=== PATIENT | female | born 1945 | race Caucasian/White ===

== ENCOUNTER 2021-05-06 09:35 | Outpatient (REF) | payer MEDICARE, SELFPAY ==
[2021-05-06 10:26] LABS: MANUAL DIFF FLAG NO
[2021-05-06 10:43] LABS: Basophils Absolute Auto 0.1 X10*3/uL (0.0-0.2); Basophils Percent Auto 1.4 % (0-2); Eosinophils Absolute Auto 0.2 X10*3/uL (0.0-0.4); Eosinophils Percent Auto 3.1 % (0-4); Hematocrit 42.7 % (37-47); Imm Gran Abs Auto 0.02 X10*3/uL (0.00-0.03); Imm Gran Pct Auto 0.3 % (0.0-0.4); Lymphocytes Absolute Auto 2.8 X10*3/uL (1.2-4.9); Lymphocytes Percent Auto 43.2 % (20-40); Mean Corpuscular HGB Conc 32.8 g/dl (31.0-35.0); Mean Corpuscular Hemoglobin 30.4 pg (27.0-33.0); Mean Corpuscular Volume 92.6 fL (80-98); Mean Platelet Volume 10.5 fL (9.4-12.3); Monocytes Absolute Auto 0.5 X10*3/uL (0.1-1.2); Monocytes Percent Auto 7.8 % (2-11); Neutrophils Absolute Auto 2.9 X10*3/uL (2.0-8.3); Neutrophils Percent Auto 44.2 % (45-73); Platelet Count 297 X10*3/uL (160-400); Red Blood Count 4.61 X10*6/uL (4.20-5.50); Red Cell Distribution Width 13.9 % (11.0-16.0); White Blood Count 6.5 X10*3/uL (4.8-10.8)
[2021-05-06 10:57] LABS: Alanine Aminotransferase 18 U/L (0-31); Anion Gap 13 (12-20); Blood Urea Nitrogen 11 mg/dL (9-16); Carbon Dioxide 28 mmol/L (22-29); Chloride 107 mmol/L (96-108); Estimated Glomerular Filt Rate > 60; Potassium 4.2 mmol/L (3.3-5.1); Sodium 144 mmol/L (135-145)
[2021-05-06 11:18] LABS: Free T4 (Free Thyroxine) 0.97 ng/dL (0.71-1.85)
== END 2021-05-06 09:36 | disposition home or self-care (01) ==
LOC: HO.LAB 09:35
PROVIDERS: PCP Family Medicine; Visit Provider Family Medicine
DX: R42 Dizziness and giddiness (principal); R63.4 Abnormal weight loss; R19.7 Diarrhea, unspecified
CPT/HCPCS: 36415; 80051; 82565; 84439; 84460; 84520; 85025

== ENCOUNTER 2022-02-27 15:26 | Outpatient (REF) | payer MEDICARE, SELFPAY ==
[2022-02-27 17:05] LABS: Anion Gap 13 (12-20); Blood Urea Nitrogen 12 mg/dL (9-16); Carbon Dioxide 30 mmol/L (22-29); Chloride 105 mmol/L (96-108); Estimated Glomerular Filt Rate > 60; Potassium 4.3 mmol/L (3.3-5.1); Sodium 144 mmol/L (135-145)
== END 2022-02-27 15:27 | disposition home or self-care (01) ==
LOC: HO.LAB 15:26
PROVIDERS: PCP Family Medicine; Visit Provider Family Medicine
DX: I10 Essential (primary) hypertension (principal)
CPT/HCPCS: 36415; 80051; 82565; 84520

== ENCOUNTER 2022-07-17 07:30 | Outpatient (REF) | payer MEDICARE, SELFPAY ==
--- NOTE | ~2022-07-17 | MM_ITS ---
EXAMINATION: MM SCREENING DIGITAL BREAST TOMOSYNTHESIS, BILATERAL CLINICAL INFORMATION: Screening. Asymptomatic. COMPARISON: Mammography: September 10, 2019 and studies dating back to July 11, 2015 TECHNIQUE: Digital breast tomosynthesis is performed in both the craniocaudal and mediolateral oblique views along with computer-aided detection (CAD). Synthesized 2D images are generated from the tomosynthesis. FINDINGS: There are scattered areas of fibroglandular density (ACR BI-RADS breast composition Category b). There are no new significant masses, abnormal calcifications, or other abnormalities. MM/MM tomosynthesis screening BI IMPRESSION: No significant changes from prior exam. ASSESSMENT: BI-RADS 1: Negative RECOMMENDATION: Routine annual mammography screening. This patient's information was entered into a reminder system with a target due date for their next mammogram.
== END 2022-07-17 07:31 | disposition home or self-care (01) ==
LOC: HO.MAMMO 07:30
PROVIDERS: Visit Provider Family Medicine
DX: Z12.31 Encounter for screening mammogram for malignant neoplasm of breast (principal)
CPT/HCPCS: 77063; 77067

== ENCOUNTER 2022-08-20 13:41 | Outpatient (REF) | payer MEDICARE, SELFPAY ==
[2022-08-20 14:16] LABS: COVID-19 Test Negative (Negative); IDNOW Serial# BCCEAD1C
== END 2022-08-20 13:42 | disposition home or self-care (01) ==
LOC: HO.LAB 13:41
PROVIDERS: Visit Provider Internal Medicine
DX: Z20.822 Contact with and (suspected) exposure to COVID-19 (principal)
CPT/HCPCS: 87635; C9803

== ENCOUNTER 2022-11-02 12:01 | Outpatient (REF) | payer MEDICARE, SELFPAY ==
[2022-11-02 12:45] LABS: COVID-19 Test Negative (Negative); IDNOW Serial# 16C4AD1C
== END 2022-11-02 12:02 | disposition home or self-care (01) ==
LOC: HO.LAB 12:01
PROVIDERS: Visit Provider Internal Medicine
DX: Z20.822 Contact with and (suspected) exposure to COVID-19 (principal)
CPT/HCPCS: 87635; C9803

== ENCOUNTER 2022-12-27 13:39 | Outpatient (REF) | payer MEDICARE, SELFPAY ==
--- NOTE | ~2022-12-27 | XR_ITS ---
EXAMINATION: XR LUMBOSACRAL SPINE CLINICAL INFORMATION: Left-sided sciatica. COMPARISON: 02/27/2017 lumbar spine radiographs. TECHNIQUE: Three views of the lumbosacral spine. FINDINGS: There is normal lumbar lordosis and spinal alignment. Generalized osteopenia is seen. Mild to moderate multilevel degenerative disc disease is seen most pronounced at L5-S1. There is no acute fracture. Moderate to severe atherosclerosis is seen in the abdominal aorta and iliac vessels. XR/XR lumbar spine 2-3V IMPRESSION: 1. Mild to moderate multilevel degenerative disc disease most pronounced at L5-S1. No acute abnormality. No significant interval change. 2. Moderate to severe atherosclerosis.
[2022-12-27 15:10] LABS: Anion Gap 13 (12-20); Blood Urea Nitrogen 12 mg/dL (9-16); Carbon Dioxide 32 mmol/L (22-29); Chloride 104 mmol/L (96-108); Estimated Glomerular Filt Rate > 60; Potassium 4.1 mmol/L (3.3-5.1); Sodium 145 mmol/L (135-145)
== END 2022-12-27 13:40 | disposition home or self-care (01) ==
LOC: HO.XRAY 13:39
PROVIDERS: PCP Family Medicine; Visit Provider Family Medicine
DX: I10 Essential (primary) hypertension (principal); M54.32 Sciatica, left side
CPT/HCPCS: 36415; 72100; 80051; 82565; 84520

== ENCOUNTER 2023-01-03 10:44 | Emergency (ER) | payer MEDICARE, SELFPAY ==
--- NOTE | ~2023-01-03 | XR_ITS ---
EXAMINATION: XR HIP, LEFT CLINICAL INFORMATION: Left hip, groin pain COMPARISON: None available. TECHNIQUE: Two views of the left hip. AP view of pelvis. FINDINGS: Pelvic bones have normal alignment. The sacrum and sacroiliac joints are unremarkable. The articular cartilage space of each hip is maintained. No arthritic deformity. No fracture, subluxation or focal soft tissue swelling. XR/XR hip LT w PEL1V IMPRESSION: Normal pelvis and left hip.
[2023-01-03 10:53] VITALS: BP 162/98; PULSE 96; O2SAT 96
--- NOTE | 2023-01-03 10:55 | ED_ITS ---
HPI - Back Pain/Injury General Chief Complaint: Extremity Problem Stated Complaint: LLE PAIN/WEAKNESS,SEEN RECENTLY FOR SAME PER EMS Time Seen by Provider: 01/03/23 10:48 Source: patient, EMS, RN notes reviewed and old records reviewed Mode of arrival: EMS Limitations: no limitations History of Present Illness HPI Narrative: 77-year-old female with a past medical history of hypertension, sciatica, presenting to the ED complaining of left hip pain radiating to left foot with associated paresthesias x 1 week. Admits was seen at PCPs last week prescribed prednisone without relief. Had outpatient lumbar x-ray showing multilevel degenerative disc disease and atherosclerosis. Admits did trip walking up the stairs last Saturday, prior to seeing PCP, unsure if landed on hip or caused symptoms. Denies head trauma or LOC. Denies weakness, numbness, urinary incontinence/retention, fever, abdominal pain MD elicited complaint: back pain Related Data Allergies Allergy/AdvReac Type Severity Reaction Status Date / Time No Known Allergies Allergy Unverified 05/26/20 15:52 [No Known Allergies*] Review of Systems Review of Systems: Constitutional: No Fever, No Chills ENT/Mouth: No Ear Pain, No Nasal Congestion, No sore throat, No Rhinorrhea, No Swallowing Difficulty Cardiovascular: No Chest Pain, No SOB Respiratory: No Cough, No Sputum, No Wheezing Gastrointestinal: No Nausea, No Vomiting, No Diarrhea, No Constipation, No Ab dominal pain Genitourinary: No Dysuria, No Urinary Frequency, No Hematuria, No Urinary Incontinence/retention, No Urgency, No Flank Pain Musculoskeletal: + joint pain, No Myalgias, No Joint Swelling Skin: No Skin Lesions, No rash Neuro: No Weakness, No Numbness, + Paresthesias Yes all other systems are reviewed and are negative Constitutional: Constitutional: Reports as per HPI Neurologic: Denies Sensory deficit (Neuro) [facility] Past Medical History Attestation statement: The following information was validated with the patient. Social History Social History Advance Directives: Yes Advance Directives on File: Yes Advance Directives Date on File: 01/03/23 Physical Exam Vital Signs: Vital Signs: Last Vital Signs Temp 97.8 F 01/03/23 11:06 Pulse 83 01/03/23 14:18 Resp 18 01/03/23 11:06 BP 166/63 H 01/03/23 14:18 Pulse Ox 95 01/03/23 14:18 O2 Del Method Room Air 01/03/23 11:06 BMI result Body Mass Index 32.1 Const: General: cooperative, healthy appearing and no acute distress Orientation/consciousness: patient oriented x3 Limitations: no limitations HEENT: Head: Yes normal to inspection and Yes atraumatic Ears: hearing grossly normal bilaterally General nose exam: Normal external nose present Face and sinus: Yes normal facial exam Eyes: General: appearance normal, both eyes and all related structures EOM: EOMs intact bilaterally Neck: Neck: Yes normal visual inspection and Yes no meningeal signs Resp: Effort & Inspection: normal respiratory effort and no respiratory di stress Cardio: Rate: regular rate Heart sounds: S1 normal heart sound present and S2 normal heart sound present Peripheral pulses: Peripheral pulses 2+ throughout GI: Inspection: Yes normal to inspection Palpation (GI): Soft to palpation, nontender, no guarding and not rigid : General: Yes no CVA tenderness Back/Spine/Pelvis: Other: No midline cervical/thoracic/lumbar spinous tenderness/step-off or deformity Back: no CVA tenderness Skin: Rashes: no rashes Wounds: no wounds Neuro: Other: Strength intact throughout. No saddle anesthesia. Sensation intact to light touch. Neurovascular intact distally General: patient oriented x3, tone normal, moves all extremities, no meningeal signs and no focal motor deficits Cognition (Neuro): normal cognition Motor exam (neuro): 5/5 motor strength present throughout Sensory Exam: No Sensory deficit (Neuro) Extrem: Other: + left lateral hip/groin tenderness to palpation, and mild left buttock tenderness. No erythema/warmth or crepitus. Hip ROM intact without pain. Neurovascularly intact distally. General: Yes normal to inspection Course Course Course Narrative: -patient reporting continued pain after Flexeril. Refuse lidocaine patch. Will give 5 mg of oxycodone >> shortly after Oxycodone patient was ambulating in the ED with steady gait with walker to the bathroom. Reports symptomatic improvement. 1305--XR hip LT w PEL1V IMPRESSION: Normal pelvis and left hip. > patient feels uncomfortable being home alone, will obtain PT/case management consult -physical therapy evaluated patient and recommended short-term rehab > patient accepted to [facility] will be transferred via BLS at 16:00 Results discussed with patient including worrisome signs and symptoms and strict return precautions, and when to return to the emergency department. They verbalized understanding and feel safe for discharge at this time. Medications Administered Discontinued Medications Generic Name Dose Route Start Last Admin Trade Name Rosy PRN Reason Stop Dose Admin Cyclobenzaprine HCl 10 mg 01/03/23 11:10 01/03/23 11:20 Cyclobenzaprine Hcl 10 Mg Tablet PO 01/03/23 11:11 10 mg ONCE ONE Administration Ketorolac Tromethamine 30 mg 01/03/23 14:13 01/03/23 14:18 Ketorolac Tromethamine 15 Mg/Ml Vial IM 01/03/23 14:14 30 mg ONCE ONE Administration Lidocaine 1 patch 01/03/23 11:10 01/03/23 12:11 Lidocaine 4 % Patch Adh..Patch TRANSDERMA 01/03/23 11:11 Not Given ONCE ONE Protocol Oxycodone HCl 5 mg 01/03/23 11:55 01/03/23 12:07 Oxycodone Hcl Immed Release 5 Mg Tablet PO 01/03/23 11:56 5 mg ONCE ONE Administration Medical Decision Making Medical Decision Making [facility] Narrative: 77-year-old female with a past medical history of hypertension, sciatica, presen ting to the ED complaining of left hip pain radiating to left foot with associated paresthesias x 1 week. On exam vital signs stable, NAD, nontoxic appearing, no midline spinous tenderness or or red flag symptoms. + left hip/groin and buttock tenderness reproducible on exam. Neurovascular intact distally. No saddle anesthesia. Unable to ambulate secondary to pain. Concern for subacute hip fracture vs strain vs sciatica. Lower suspicion for fracture, cauda equina, cord compression, hernia, intra-abdominal process Plan: Left hip/pelvis x-rays, p.o. Flexeril/Lidoderm patch Please refer to course for remaining clinical decision making, interpretation of labs/imaging results, and discussions with consultants and/or family members. Differential Diagnosis Differential Diagnoses: The differential diagnosis associated with the presentation includes As above Admission/Observation Consideration of admission/observation: Escalation of care including admission/observation considered Lab Data [facility] Lab Attestation statement: I reviewed the patient's lab results. Labs: Lab Results 01/03/23 Range/Units 14:23 COVID-19 (MASOOD) Negative (Negative) COVID-19 Clin Com See Note Radiology Impression Discussion of test interpretation with radiology: I have reviewed the radiologist's reading. External Record Review External record reviewed: Inpatient record, Office record, Outpatient record, Prior outpatient labs, Prior outpatient radiology, Primary care record and Outside ED record Discharge Plan Discharge Clinical Impression: Sciatica, Acute pain of left hip Patient Disposition: Still a Patient
[2023-01-03 11:06] VITALS: BP 166/63; PULSE 83; RESP 18; TEMP 36.6; O2SAT 95; BMI 32.1
[2023-01-03] MEDS: Cyclobenzaprine HCl 10 MG TABLET PO (11:20)
[2023-01-03] MEDS: oxyCODONE HCl Immed Release 5 MG TABLET PO (12:07)
--- NOTE | 2023-01-03 12:20 | PC.NURSE ---
pt medicated with flexeril 10mg, pt refused lidocaine patch and stated I have the presciption ones at home, i took them off at 6am provider aware- oxycodone ordered call ignacio within reach- xrays taken pending results
--- NOTE | 2023-01-03 13:14 | PC.NURSE ---
pt observed oob with RW independently to BR, was able to get self back into bed
--- NOTE | 2023-01-03 13:15 | PC.NURSE ---
nurse called into room pt sts that her pain is now back in full force PRN pain medication given had been given
[2023-01-03 14:18] VITALS: BP 166/63; PULSE 83; O2SAT 95
[2023-01-03] MEDS: Ketorolac Tromethamine 15 MG/ML VIAL 30 MG IM (14:18)
[2023-01-03 14:43] LABS: COVID-19 Test Negative (Negative); IDNOW Serial# BCCEAD1C
--- NOTE | 2023-01-03 15:03 | PC.NURSE ---
pt oob to BR with rolling walker able to get in and out of bed and use toilet independently
--- NOTE | 2023-01-03 15:06 | MHC.CM.ED ---
Addendum entered by Lucretia Gar 01/03/23 15:43: [facility] offer a bed. Patient can leave at 4pm. Patient, Cathleen RN and Marla POWELL aware. David MAHONEY booked. Original Note: Received case management consult from Marla POWELL. Patient came to the ER due to weakness. Physical therapy eval completed. Short term rehab is recommended. Patient informed PT that [facility]. Referral made via [facility]. Attempted to meet with patient in regards to d/c planning. Patient currently in the bathroom. No family present. Will attempt to meet again. Continue to monitor for d/c needs.
--- NOTE | 2023-01-03 15:16 | PC.NURSE ---
rec call from [place] case management, pt will be going to [facility] @ 1600 transportation arrangements made by case management
--- NOTE | 2023-01-03 15:51 | PHA.MEDREC ---
Pharmacy Consult ? Medication Reconciliation Pharmacy has completed the medication reconciliation. Patient had list on her phone.
[2023-01-03 16:17] VITALS: BP 158/57; PULSE 89; O2SAT 99
== END 2023-01-03 16:54 | disposition skilled nursing facility (03) ==
PROVIDERS: Physician Assistant; Emergency Provider Emergency Medicine; PCP Family Medicine
DX: M54.42 Lumbago with sciatica, left side (principal); G89.11 Acute pain due to trauma; M25.552 Pain in left hip; Z20.822 Contact with and (suspected) exposure to COVID-19
CPT/HCPCS: 73502; 87635; 96372; 97162; 99284; 99285; J1885

== ENCOUNTER 2023-01-26 13:30 | Outpatient (REF) | payer MEDICARE, SELFPAY ==
--- NOTE | ~2023-01-26 | MR_ITS ---
EXAMINATION: MR LUMBAR SPINE WITHOUT CONTRAST CLINICAL INFORMATION: Persistent left-sided sciatica. Evaluate for compression fracture of L4-L5 nerve root. COMPARISON: Lumbar spine radiographs 12/27/2022. TECHNIQUE: MRI of the lumbar spine was obtained using routine sequences without contrast. FINDINGS: There is slight grade 1 anterolisthesis of L3 on L4, L4 on L5, and L5 on S1 related to advanced facet degenerative changes at these levels. Vertebral heights are preserved. No acute bone marrow signal changes. The slight loss of intervertebral disc height and T2 signal intensity at multiple levels related to disc degeneration. The tip of the conus medullaris is located at L1-L2. No mass effect on the conus. Visualized distal cord signal intensity is normal. At L1-L2 there is a bulging disc. Bilateral facet degenerative change. No canal stenosis. No mass effect on the traversing or foraminal nerve roots. At L2-L3 there is a slightly bulging disc. Bilateral facet degenerative change. No canal stenosis. No mass effect on the traversing or foraminal nerve roots. At L3-L4 there is a pseudodisc bulge. Advanced bilateral facet degenerative change. Mild canal stenosis. Subarticular zone narrowing causes abutment of the left traversing L4 nerve roots. No foraminal nerve root compression. At L4-L5 there is a pseudodisc bulge. Advanced bilateral facet degenerative change. Mild canal stenosis. There is a small synovial cyst arising from the left L4-L5 articular facet joint which in conjunction with a bulging disc causes compression of the left traversing L5 nerve roots. No foraminal nerve root compression. At L5-S1 there is an asymmetrically bulging disc to the left. Bilateral facet degenerative change. No canal stenosis. No substantial mass effect on the traversing or foraminal nerve roots. Limited visualization of the retroperitoneal anatomy reveals no abnormal finding. Psoas and paraspinal muscle groups are symmetric. MR/MR lumbar spine wo con IMPRESSION: There is multilevel degenerative spondylosis of the lumbar spine with slight grade 1 anterolisthesis of L3 on L4, L4 on L5, and L5 on S1 related to advanced facet degenerative changes at these levels. There is mild canal stenosis at L3-L4 and L4-L5. A small synovial cyst arising from the left L4-L5 articular facet joint which in conjunction with a bulging disc causes asymmetric compression of the left traversing L5 nerve roots. Otherwise no substantial mass effect on the traversing or foraminal nerve roots elsewhere within the lumbar spine.
== END 2023-01-26 13:31 | disposition home or self-care (01) ==
LOC: HO.MRI 13:30
PROVIDERS: PCP Family Medicine; Visit Provider Family Medicine
DX: M54.32 Sciatica, left side (principal)
CPT/HCPCS: 72148

== ENCOUNTER 2023-04-01 12:27 | Outpatient (AMB) | payer MEDICARE, SELFPAY ==
[2023-04-01 12:56] VITALS: BP 184/82; PULSE 101; BMI 32.9
--- NOTE | 2023-04-01 12:56 | A.OFFVIS_ITS ---
Intake Vital Signs 04/01/23 12:56 Height 5 ft 3 in Weight 186 lb BMI 32.9 BP 184/82 H Blood Pressure Location Rt brachial Position Sitting Pulse 101 H Intake Visit Reasons: Lesion above right wrist Intake Note: Patient referred for lesion on Rt forearm. Has been present for at least a year. Recently became irritated, bleeding. Not healing. Patient keeps it covered with bandaid. Also concerned with lesion on Lt neck/ shoulder. Gets irritated with cothing.Reports no hx of skin ca. [facility] Psych[facility]rist Required: No Accompanied by: Self / Same As Patient Allergies No Known Allergies [No Known Allergies*] Allergy (Unverified 04/01/23 12:58) Medication List - Last Reconciled 04/01/23 by Nnamdi Telles MD aspirin 81 mg PO DAILY losartan 50 mg PO DAILY metoprolol succinate ER 50 mg PO BEDTIME omeprazole 20 mg PO DAILY@1700 vit C,N-Re-pfjqw-lutein-zeaxan 250-90-40-1 mg (PreserVision AREDS-2) 1 tab PO BID vitamin B complex 1 tab PO DAILY HPI HPI Comments History of Present Illness Details Patient presents for evaluation of a right distal forearm skin lesion and a left neck lesion. There each increasing in size, become more symptomatic. She would like to have them removed. Chart was reviewed and patient evaluated [facility] Medical History (Updated 04/01/23 @ 13:00 by ULISES Marin) HTN (hypertension) Social History (Updated 04/01/23 @ 13:01 by ULISES Marin) Alcohol intake: current Alcohol intake frequency: holidays/special occasions only Alcohol type: wine Patient Tobacco Use Status: Former Tobacco user Quit Date: 15 yrs ago Advance Directives Date on File: 01/03/23 Physical Exam Vital Signs: Last Vital Signs Pulse 101 H 04/01/23 12:56 BP 184/82 H 04/01/23 12:56 BMI result Body Mass Index 32.9 Neck Other: Approximately 3 x 2 cm seborrheic keratotic exophytic lesion involving left neck. Multiple smaller flat left neck similar lesions. No cervical periclavicular adenopathy. Extrem Other: Approximately 1/2 x 1/2 cm distal dorsal forearm exophytic lesion Office Procedures Excision Details: Risks, benefits, alternatives of excision of right forearm and left neck lesions were reviewed with the patient and included but not limited to bleeding, infection, recurrence, numbness, pain, scarring the patient was to proceed. Each area 1.% lidocaine and Betadine prep and 10 gentle excision of a right form lesion approximately 0.5 cm in diameter and a left neck lesion/seborrheic keratotic lesion measuring approximately 2 x 3 cm for uneventfully performed. Specimens separately sent to pathology. Each wound was secured hemostasis using silver nitrate followed by bacitracin and sterile dressing. Patient tolerated procedures well. 47951-Hxksedcx scalp/neck/hands/feet/genitalia 2.1cm-3cm 97034-stapr/arms/legs < 0.5cm Procedure code (CPT) selection complete Office Meds lidocaine-epinephrine 1 %-1:100,000 Performing Provider: Nnamdi Telles MD Documented (not given) by: Nnamdi Telles MD on 04/01/23 13:15 Dose Route Admin Location Lot Number Expiration Date NDC Toll Operator 30 mL Infiltration Assessment & Plan Assessment & Plan (1) Skin lesion: Code(s): L98.9 - Disorder of the skin and subcutaneous tissue, unspecified (2) Skin lesion of neck: Code(s): L98.9 - Disorder of the skin and subcutaneous tissue, unspecified Orders: Orders AMB Excision Today L98.9 - Disorder of the skin and subcutaneous tissue, unspecified Medications: New lidocaine-epinephrine 1 %-1:100,000 30 mL Infiltration ONCE 30 mL 0RF L98.9 - Disorder of the skin and subcutaneous tissue, unspecified Coding Level of Care Code New Pt Level 4 (56160) Diagnoses Skin lesion L98.9 Skin lesion of neck L98.9 CPT Codes Trunk/Arms/Legs - CPT: 72695-fekgs/arms/legs < 0.5cm ([id number]) Scalp/Neck/Hands/Feet/Genetalia - CPT: 34580-Jrbnvysk scalp/neck/hands/feet/ge nitalia 2.1cm-3cm ([id number])
== END 2023-04-01 13:15 | disposition home or self-care (01) ==
PROVIDERS: PCP Family Medicine; Referring Provider Family Medicine; Visit Provider Surgery
DX: L82.1 Other seborrheic keratosis (principal)
CPT/HCPCS: 11400; 11423; 99204

== ENCOUNTER 2023-04-01 12:27 | Outpatient (REF) | payer MEDICARE, SELFPAY | END 2023-04-01 12:28 | disposition home or self-care (01) | LOC: HO.LNP 12:27 | PROVIDERS: PCP Family Medicine; Referring Provider Family Medicine; Visit Provider Surgery | DX: L82.0 Inflamed seborrheic keratosis (principal); L98.9 Disorder of the skin and subcutaneous tissue, unspecified | CPT/HCPCS: 11400; 11423; 88304; 99202 ==

== ENCOUNTER 2023-04-08 09:14 | Outpatient (AMB) | payer MEDICARE, SELFPAY ==
--- NOTE | 2023-04-08 09:24 | MHC.OFFVIS ---
Intake Vital Signs 04/08/23 09:26 BP 162/69 H Blood Pressure Location Rt brachial Position Sitting Pulse 91 Intake Visit Reasons: Follow up exc skin lesion above right wrist Intake Note: Patient here s/o exc on Lt neck/ upper chest and Rt forearm. Reports chest has been red and tender. Both sites healing well. Denies bleeding or oozing. Director Of Institutional Sales Required: No Accompanied by: Self / Same As Patient Allergies No Known Allergies [No Known Allergies*] Allergy (Unverified 04/08/23 09:26) HPI HPI Comments History of Present Illness Details Patient presents for follow-up. She has no wound issues or complaints. Pathologies are benign [facility] Medical History HTN (hypertension) Social History Alcohol intake: current Alcohol intake frequency: holidays/special occasions only Alcohol type: wine Patient Tobacco Use Status: Former Tobacco user Quit Date: 15 yrs ago Advance Directives Date on File: 01/03/23 Physical Exam Vital Signs: Last Vital Signs Pulse 91 04/08/23 09:26 BP 162/69 H 04/08/23 09:26 Neck Other: Neck wound eschar clean dry and intact Extrem Other: Right forearm wound eschar, clean dry and intact Assessment & Plan Assessment & Plan (1) Skin lesion: Code(s): L98.9 - Disorder of the skin and subcutaneous tissue, unspecified (2) Skin lesion of neck: Code(s): L98.9 - Disorder of the skin and subcutaneous tissue, unspecified Plan Patient has been given local wound instructions, and will follow-up p.r.n. Coding Level of Care Code Global (78814) Diagnoses Skin lesion L98.9 Skin lesion of neck L98.9
[2023-04-08 09:26] VITALS: BP 162/69; PULSE 91
== END 2023-04-08 09:30 | disposition home or self-care (01) ==
PROVIDERS: PCP Family Medicine; Visit Provider Surgery
DX: L98.9 Disorder of the skin and subcutaneous tissue, unspecified (principal)
CPT/HCPCS: 99024

== ENCOUNTER → 2023-04-08 09:14 | Outpatient (BNVA) | payer MEDICARE, SELFPAY | PROVIDERS: PCP Family Medicine; Visit Provider Surgery ==

== ENCOUNTER 2023-05-30 12:05 | Outpatient (REF) | payer MEDICARE, SELFPAY ==
[2023-05-30 13:07] LABS: Anion Gap 13 (12-20); Blood Urea Nitrogen 13 mg/dL (9-16); Carbon Dioxide 25 mmol/L (22-29); Chloride 108 mmol/L (96-108); Estimated Glomerular Filt Rate > 60; Potassium 3.6 mmol/L (3.3-5.1); Sodium 142 mmol/L (135-145)
== END 2023-05-30 12:06 | disposition home or self-care (01) ==
LOC: HO.LAB 12:05
PROVIDERS: PCP Family Medicine; Visit Provider Family Medicine
DX: I10 Essential (primary) hypertension (principal)
CPT/HCPCS: 36415; 80051; 82565; 84520

== ENCOUNTER → 2023-07-24 07:30 | Outpatient (BNV) | payer MEDICARE, SELFPAY | PROVIDERS: PCP Family Medicine; Visit Provider Radiology Diagnostic Radiology | DX: Z12.31 Encounter for screening mammogram for malignant neoplasm of breast (principal) | CPT/HCPCS: 77063; 77067 ==

== ENCOUNTER 2023-07-24 07:32 | Outpatient (REF) | payer MEDICARE, SELFPAY ==
--- NOTE | ~2023-07-24 | MM_ITS ---
EXAMINATION: MM SCREENING DIGITAL BREAST TOMOSYNTHESIS, BILATERAL CLINICAL INFORMATION: Screening. Asymptomatic. COMPARISON: Mammography: This study is compared with prior exams dating back to 2017. TECHNIQUE: Digital breast tomosynthesis is performed in both the craniocaudal and mediolateral oblique views along with computer-aided detection (CAD). Synthesized 2D images are generated from the tomosynthesis. FINDINGS: The breasts are heterogeneously dense, which may obscure small masses (ACR BI-RADS breast composition Category c). There are no significant masses, abnormal calcifications, or other abnormalities. There are a few, bilateral, unchanged calcifications in each breast. MM/MM tomosynthesis screening BI IMPRESSION: No mammographic evidence of malignancy. ASSESSMENT: BI-RADS BI-RADS 2 - Benign Findings RECOMMENDATION: Routine annual mammography screening. 1 year F/U This examination should not preclude the clinical evaluation of a suspicious palpable abnormality. This patient's information was entered into a reminder system with a target due date for their next mammogram.
== END 2023-07-24 07:33 | disposition home or self-care (01) ==
LOC: HO.MAMMO 07:32
PROVIDERS: PCP Family Medicine; Visit Provider Family Medicine
DX: Z12.31 Encounter for screening mammogram for malignant neoplasm of breast (principal)
CPT/HCPCS: 77063; 77067

== ENCOUNTER 2023-11-18 14:16 | Outpatient (REF) | payer MEDICARE, SELFPAY ==
[2023-11-18 15:10] LABS: Anion Gap 11 (12-20); Blood Urea Nitrogen 13 mg/dL (9-16); Carbon Dioxide 31 mmol/L (22-29); Chloride 109 mmol/L (96-108); Estimated Glomerular Filt Rate > 60; Potassium 3.5 mmol/L (3.3-5.1); Sodium 147 mmol/L (135-145)
== END 2023-11-18 14:17 | disposition home or self-care (01) ==
LOC: HO.LAB 14:16
PROVIDERS: PCP Family Medicine; Visit Provider Family Medicine
DX: I10 Essential (primary) hypertension (principal)
CPT/HCPCS: 36415; 80051; 82565; 84520

== ENCOUNTER 2024-05-25 13:47 | Outpatient (REF) | payer MEDICARE, SELFPAY ==
[2024-05-25 15:15] LABS: Anion Gap 16 (12-20); Blood Urea Nitrogen 12 mg/dL (9-16); Carbon Dioxide 22 mmol/L (22-29); Chloride 109 mmol/L (96-108); Estimated Glomerular Filt Rate > 60; Potassium 4.1 mmol/L (3.3-5.1); Sodium 143 mmol/L (135-145)
== END 2024-05-25 13:48 | disposition home or self-care (01) ==
LOC: HO.LAB 13:47
PROVIDERS: PCP Family Medicine; Visit Provider Family Medicine
DX: I10 Essential (primary) hypertension (principal)
CPT/HCPCS: 36415; 80051; 82565; 84520

== ENCOUNTER 2025-07-21 12:48 | Outpatient (AMB) | payer MEDICARE, SELFPAY ==
--- NOTE | 2025-07-21 12:50 | A.OFFPC_ITS ---
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 Required: No Accompanied by: Self / Same As Patient Allergies No Known Allergies (No Known Allergies*) Allergy (Verified 07/21/25 12:51) Tobacco use date assessed: 07/21/25 Fall risk assessment: No Falls in past year Last assessed Fall Risk: 07/21/25 Dental Screening Dental Screen Date: 07/21/25 Did you have a dental visit in the last 12 months?: Yes Did you have a dental problem in the last 6 months where you did not have access to dental care?: No Was dental information given to patient?: Patient has dentist HPI HPI Comments History of Present Illness Details 79-year-old female with history of osteo arthritis, depression, IBS, GERD, gait ataxia, hypertension presenting to the office today for management of chronic conditions and to establish care. She is a former patient of Dr. Sena, last seen 02/2025 Hypertension-compliant with Toprol 50 mg nightly, losartan 50 mg daily. Blood pressure in the office 140/68. Brings record of prior blood pressures which are within normal limits GERD-ppi Concerns: Lesion right hand-revolving, previously saw general surgery for excision and biopsy Chest pain-reports retrosternal chest pressure ongoing intermittently since Saturday. Saturday was most severe radiating down the left arm. She took 325 mg of aspirin with resolution of symptoms. She does currently have these symptoms but reports they are not as severe. There is associated dyspnea on exertion and is reporting constant fatigue. She has no known history of coronary artery disease though does take a baby aspirin on a daily basis as well as metoprolol. Currently no dyspnea, lightheadedness, palpitations ROS: see hpi EXAM: Constitutional - Awake and Alert, No apparent distress Eyes - PERRL Cardiovascular - S1S2, RRR, No edema, IV/ systolic murmur greatest in aortic and pulmonic maixne Respiratory - Normal lung expansion, Normal respiratory effort, No respiratory distress, CTA bilaterally Extremities - no calf tenderness bilaterally, no swelling Skin - Warm/Dry Neurological - Alert & oriented x3 Psychological - Appropriate affect [facility] Medical History HTN (hypertension) Social History Housing: House Alcohol intake: current Alcohol intake frequency: holidays/special occasions only Alcohol type: wine Patient Tobacco Use Status: Former Tobacco user Years Smoked: on and off for 15 years e-Cigarette/Vaping Use: Never Used Advance Directives Date on File: 01/03/23 service: No Current occupational status: retired Questionnaire AUDIT C Alcohol Use Questionnaire (AUDIT-C) 1. How often do you have a drink containing alcohol?: 2-3 times a week 2. How many drinks containing alcohol do you have on a typical day when you are drinking?: 1 or 2 3. How often do you have six or more drinks on one occasion?: Never Total Score: 3 Physical exam (Primary Care) Vital Signs: Last Vital Signs Temp 98 F 07/21/25 13:13 Pulse 117 H 07/21/25 13:13 Resp 20 07/21/25 13:13 BP 140/66 H 07/21/25 13:13 Pulse Ox 97 07/21/25 13:13 Oxygen Delivery Method Room Air 07/21/25 13:13 BMI result Body Mass Index 35.5 Tobacco/Smoking Status: Tobacco use Status Tobacco use date assessed 07/21/25 07/21/25 12:51 Patient Tobacco Use Status Former Tobacco user 07/21/25 12:51 e-Cigarette/Vaping Use Never Used 07/21/25 13:21 Office Procedures EKG Details: NSR, rate 97, no significant ST/T-wave abnormality but slight Q-waves noted in lead I and aVL. Patient is symptomatic [id number], Complete Coding Level of Care Code New Pt Level 5 (55699) Complex EM visit Add On G2211 Diagnoses Chest pain R07.9 Aortic stenosis I35.0 Dyspnea on exertion R06.09 CPT Codes EKG - CPT: 25797-[id number], Complete ([id number]) Assessment & Plan Assessment & Plan (1) Chest pain: Code(s): R07.9 - Chest pain, unspecified Category: Medical Plan: EKG reviewed. Currently asymptomatic, slight Q-waves noted in leads 1 and aVL. EMS called for transfer to the ED. Transfer agreeable. No aspirin available in the office unfortunately (2) Aortic stenosis: Code(s): I35.0 - Nonrheumatic aortic (valve) stenosis Category: Medical Plan: Grade IV/ with coinciding symptoms. Stat echo ordered and stat referral to cardiology ordered (3) Dyspnea on exertion: Code(s): R06.09 - Other forms of dyspnea Category: Medical Plan: As above. Plan Presenting to the ED for further evaluation and management Orders: Orders AMB EKG-In Office Today R07.9 - Chest pain, unspecified CA echo transesophageal Today I35.0 - Nonrheumatic aortic (valve) stenosis, R06.09 - Other forms of dyspnea, R07.9 - Chest pain, unspecified Referrals Cardiology Referral I35.0 - Nonrheumatic aortic (valve) stenosis, R06.09 - Other forms of dyspnea, R07.9 - Chest pain, unspecified
[2025-07-21 13:13] VITALS: BP 140/66; PULSE 117; RESP 20; TEMP 36.6; O2SAT 97; BMI 35.5
== END 2025-07-21 14:41 | disposition home or self-care (01) ==
LOC: HO.HMCHD 12:49
PROVIDERS: PCP Physician Assistant; Visit Provider Physician Assistant
DX: R07.9 Chest pain, unspecified (principal); I35.0 Nonrheumatic aortic (valve) stenosis; R06.09 Other forms of dyspnea

== ENCOUNTER 2025-07-21 14:35 | Emergency (ER) | payer MEDICARE, SELFPAY ==
--- NOTE | 2025-07-21 | ECG_ITS ---
Test Reason : CP Blood Pressure : */* mmHG Vent. Rate : 92 BPM Atrial Rate : 92 BPM P-R Int : 156 ms QRS Dur : 86 ms QT Int : 344 ms P-R-T Axes : 37 -20 23 degrees QTcB Int : 425 ms Normal sinus rhythm Anterior infarct , age undetermined Abnormal ECG When compared with ECG of 09-Jun-2014 08:27, Anterior infarct is now Present Referred By: Generic ED Physician Electronically Signed By: YSABEL FRANKLIN MD
--- NOTE | ~2025-07-21 | XR_ITS ---
CLINICAL HISTORY: chest pain 1 view chest x-ray Comparison: None provided Findings: No consolidation or effusion. Heart size is normal. No acute fracture. IMPRESSION: 1. No acute findings. This document has been electronically signed by: Dolores Montes MD on 07/21/2025 17:44:53
[2025-07-21 14:45] VITALS: BP 132/56; BP 146/76; PULSE 86; PULSE 90; RESP 17; TEMP 36.8; O2SAT 96; O2SAT 98; BMI 36.4
--- NOTE | 2025-07-21 15:48 | ED_ITS ---
HPI - General Adult General Chief complaint: General Medical Stated complaint: CP XDAYS,EKG CHANGES FROM MD OFFICE Time Seen by Provider: 07/21/25 15:30 Source: patient, RN notes reviewed and old records reviewed Mode of arrival: ambulatory Limitations: no limitations History of Present Illness ED Provider: Cherry Piedra PA-C HPI narrative: Roxanne is an 79 y/o female with PMH sig for HTN and GERD who who was referred to the ED today after her primary care visit earlier this afternoon (? 1:15 PM) where an outpatient screening EKG showed an abnormality. She reports fatigue that began about one week ago and has been present for about a month, with worsening over the past week. She also describes intermittent chest pain that first occurred last while in bed at 2 AM?she awoke with a sensation ?like somebody was hitting my chest.? Subsequent episodes occurred Saturday while resting and again last night while seated in a recliner. The Saturday episode lasted ~2 hours; the most recent episode has persisted for ~3 hours since her PCP visit and is still present, though milder (?feels like somebody?s sitting on my chest, but not real bad?). Pain is located in the chest with radiation to the arm, constant during episodes, not worsened by exertion or movement, but sometimes worse when lying flat, and has not been associated with decreased oral intake. Aspirin placed sublingually produced partial relief; Tums provided no benefit. She denies prior myocardial infarction, heart disease, stroke, diabetes, dizziness, light-headedness, dyspnea on exertion, cough, sore throat, dysuria, or recent infections. Past history includes hypertension and remote tobacco use (quit ~10 years ago). No current tobacco use. Ashwini Blanchard PA-C reports she send patient here with concern of the chest pressure she reported in office today and the slight q waves seen in office EKG today. Related Data Home Medications ?Medication ?Instructions ?Recorded ?Confirmed aspirin 81 mg tablet,delayed 81 mg PO DAILY 01/03/23 0 01/03/23 release losartan 50 mg tablet 50 mg PO DAILY 01/03/2312/09 metoprolol succinate 50 mg 50 mg PO BEDTIME 01/03/23 0 01/03/23 tablet,extended release 24 hr omeprazole 20 mg capsule,delayed 20 mg PO DAILY@1700 0 01/03/23 01/03/23 release vit C 250 mg-vit E 90 mg-zinc 40 1 tab PO BID 01/03/23 01/03/23 mg-copper 1 [id number] capsule (PreserVision AREDS-2) vitamin B complex 1 tab PO DAILY 01/03/2312/09 ascorbate calcium (vitamin C) 500 1,000 mg PO DAILY mg tablet magnesium 250 mg tablet 250 mg PO DAILY 07/21/25 multivitamin 1 tab PO DAILY 07/21/25 Allergies Allergy/AdvReac Type Severity Reaction Status Date / Time No Known Allergies (No Known Allergy Verified 07/21/25 14:48 Allergies*) Review of Systems 2 Review of Systems: Yes all other systems are reviewed and are negative PMFSH Past Medical History Attestation statement: The following information was validated with the patient. Source: old records reviewed and nursing notes reviewed Medical History Aortic stenosis Chest pain HTN (hypertension) Social History Social History Housing: House Alcohol intake: current Alcohol intake frequency: 0-2 drinks per day Alcohol type: wine Patient Tobacco Use Status: Former Tobacco user Years Smoked: on and off for 15 years Smoked in Last 30 Days: No e-Cigarette/Vaping Use: Never Used Use of substances other than those prescribed or required for medical reasons: No Advance Directives: Yes Advance Directives on File: Yes Advance Directives Date on File: 01/03/23 Do you have a plan to hurt others: No Plan service: No Current occupational status: retired Physical Exam ED Exam Exam: General: Appears in no acute distress, appears well nourished body habitus is obese, appears stated age. No septic or ill-appearing. Vitals reviewed normal, PMH/Social and Surgical hx reviewed including allergies and current medications. - reviewed for prior visits here Head: Normocephalic, no obvious trauma or skin lesions noted. Eyes: EOMI, no scleral icterus ENMT: moist oral mucosa, uvula is midline no trismus Neck: trachea midline, no lymphadenopathy Cardiovascular: peripheral perfusion normal, Regular heart rate, regular rhythm, no M/R/G, distal pulses 2+ equal and symmetric (carotid, femoral, radial, DP/TP) Respiratory: no respiratory distress, lungs CTAB, chestwall nontender, no ecchymosis, no midline tenderness, step-offs or deformities of entire spine Abdomen: protuberant, nontender Extremities: warm and moving without difficulty Psych: Cooperative Neuro: Alert and oriented. Vital Signs: Vital Signs - 24 hr 07/21/25 14:45 07/21/25 16:11 07/21/25 17:36 Temperature 98.3 F 98.4 F Pulse Rate 90 86 92 Respiratory Rate 17 15 Blood Pressure 132/56 L 133/59 L 125/65 Pulse Oximetry 96 96 Oxygen Delivery Method Room Air Room Air 07/21/25 17:36 Temperature Pulse Rate Respiratory Rate Blood Pressure 125/65 Pulse Oximetry Oxygen Delivery Method BMI result Body Mass Index 36.4 Medications Administered Discontinued Medications Generic Name Dose Route Start Last Admin Trade Name Freq PRN Reason Stop Dose Admin Al Hydroxide/Mg Hydroxide 15 ml 07/21/25 17:13 07/21/25 17:36 Magnesium Hydrox/Alum Hydrox 30 Ml Oral.Susp PO 07/21/25 17:14 15 ml ONCE ONE Administration Lidocaine HCl 15 ml 07/21/25 17:13 07/21/25 17:37 Lidocaine Hcl Viscous 2 % 15 Ml Solution MUCOUS MEM 07/21/25 17:14 15 ml ONCE ONE Administration Losartan Potassium 50 mg 07/21/25 17:16 07/21/25 17:36 Losartan Potassium 50 Mg Tablet PO 07/21/25 17:17 50 mg ONCE ONE Administration Protocol Metoprolol Succinate 50 mg 07/21/25 17:16 07/21/25 17:36 Metoprolol Succinate Er 50 Mg Tab.Er.24h PO 07/21/25 17:17 50 mg ONCE ONE Administration Protocol Omeprazole 20 mg 07/21/25 17:13 07/21/25 17:36 Omeprazole 20 Mg Capsule.Dr PO 07/21/25 17:14 20 mg ONCE ONE Administration Medical Decision Making Medical Decision Making MDM Narrative: 79 year old female with hypertension presenting with sub-acute fatigue and recurrent non-exertional chest pain, currently ongoing, after outpatient EKG abnormality noted by PCP. Upon arrival to ED, she is afebrile, saturating 96 % on RA, afebrile and not appearing in any acute distress. Cardiac work up was initiated. EKG: NSR 92 BMP, age indeterminate anterior infarct, no STEMI, no malignant arrythymia. Problem?#1: Chest pain, rule?out cardiac etiology Assessment: Recurrent, non-exertional chest discomfort with arm radiation; abnormal outpatient EKG (details pending). Differential includes acute coronary syndrome, atypical angina, GI causes, anxiety, musculoskeletal pain. Plan: * cardiac labs, monitor, EKG and potential cardiac consult, CXR Problem?#2: Fatigue Assessment: Progressive fatigue over the past month; may be related to underlying cardiac condition or other medical causes. Plan: * Labs, CXR, EKG, no infectious sxs Problem?#3: Hypertension (history of) Assessment: Chronic condition; home medication metoprolol succinate 50 mg daily. Plan: Continue home medications Medication list (per patient): metoprolol succinate 50 mg, omeprazole 20 mg, doxepin 20 mg, baby aspirin daily, B-complex, vitamin C, fish oil, magnesium, vitamin E. Takes all at 5 PM. 1700: CBC is normal no leukocytosis or anemia. D dimer is 193, PE can be ruled out clinically. Pulses are equal and symmetric, no widened mediastinum and D dimer negative, no aortic dissection. CP onset > 3 hours ago, troponin is negative < 2.7; ACS can be ruled out. BNP is 257.8, no peripheral edema and CXR without effusions, new onset CHF can be ruled out. No hepatobiliary disease. No pancreatitis. Given patient's symptoms resolved earlier this week with TUMs and lasts for hours at time, presentation most consistent with reflux. GI cocktail given. Will advise close PCP follow up. Return precautions given. Differential Diagnosis Differential Diagnoses: The differential diagnosis associated with the presentation includes See [facility] Admission/Observation Consideration of admission/observation: Escalation of care including admission/observation considered Lab Data [facility] Lab Attestation statement: I reviewed the patient's lab results. 07/21/25 16:09 07/21/25 16:09 Labs: Lab Results 07/21/25 Range/Units 16:09 WBC 9.2 (4.8-10.8) X10*3/uL RBC 4.60 (4.20-5.50) X10*6/uL Hgb 14.3 (12.0-16.0) g/dl Hct 43.0 (37.0-47.0) % MCV 93.5 (80.0-98.0) fL MCH 31.1 (27.0-33.0) pg MCHC 33.3 (31.0-35.0) g/dl RDW 13.4 (11.0-16.0) % Plt Count 305 (160-400) X10*3/uL MPV 9.6 (9.4-12.3) fL Immature Gran % (Auto) 0.3 (0.0-0.4) % Neut % (Auto) 65.1 (45-73) % Lymph % (Auto) 24.6 (20-40) % Liberty % (Auto) 7.9 (2-11) % Eos % (Auto) 1.2 (0-4) % Baso % (Auto) 0.9 (0-2) % Lymph # (Auto) 2.3 (1.2-4.9) X10*3/uL Liberty # (Auto) 0.7 (0.1-1.2) X10*3/uL Eos # (Auto) 0.1 (0.0-0.4) X10*3/uL Baso # (Auto) 0.1 (0.0-0.2) X10*3/uL Abs Immat Gran (auto) 0.03 (0.00-0.03) X10*3/uL Absolute Neuts (auto) 6.0 (2.0-8.3) x10*3/uL Absolute Nucleated RBC 0.000 (0.0-0.012) X10*3/uL Nucleated RBC % (auto) 0.0 (0.0-0.2) /100WBC D-Dimer High Sensitivty 193 NG/ML Sodium 144 (135-145) mmol/L Potassium 4.0 (3.3-5.1) mmol/L Chloride 107 (96-108) mmol/L Carbon Dioxide 31 H (22-29) mmol/L Anion Gap 10 L (12-20) BUN 21 H (9-16) mg/dL Creatinine 0.79 (0.5-1.4) mg/dL Estim Creat Clear Calc 58.3 Estimated GFR > 60 Random Glucose 98 (60-115) mg/dL Calcium 10.0 (8.4-10.2) mg/dL Magnesium 2.2 (1.6-2.6) mg/dL Total Bilirubin 0.3 (0.0-1.0) mg/dL AST 22 (5-31) U/L ALT 20 (0-31) U/L Alkaline Phosphatase 96 (39-117) U/L Troponin I High Sens < 2.7 (<3.5-17.0) ng/L NT-Pro-B Natriuret Pep 257.8 (<300) pg/mL Total Protein 7.0 (6.5-8.0) g/dL Albumin 4.6 (3.5-5.0) g/dL Lipase 19 (8-78) U/L Independent Interpretation I performed an independent interpretation of an: EKG Interpretation: EK bpm NSR, left axis deviation, no STEMI, no malignant arrhythmia (outpatient EKG rev'd- no STEMI, concern for lateral infarct per read out report) CXR: no pleural effusion or widened mediastinum Radiology Impression Discussion of test interpretation with radiology: I have reviewed the radiologist's reading. Independent Historian Clinical information obtained from an independent historian. History obtained from or confirmed by: Other (COMMUNITY NUTRITION EDUCATOR) Tests considered The following testing was considered but not selected: Had D dimer been abnormal would have considered CTA of chest Chronic Conditions Patient?s care impacted by: Hypertension Social Determinants Patient?s care significantly limited by Social Determinants of Health including: Other Social Determinant of Health Discharge Plan Discharge Clinical Impression: Chest pain Qualifiers: Chest pain type: unspecified Qualified Code(s): R07.9 - Chest pain, unspecified Esophageal reflux Qualifiers: Esophagitis presence: esophagitis presence not specified Qualified Code(s): K 21.9 - Gastro-esophageal reflux disease without esophagitis Patient Disposition: Home, Self-Care Instructions: Indigestion (ED) Additional Instructions: You were seen in the emergency department for recurrent chest pain that is not exertional and lasted for a few hours a few times this past week. It was only relieved with tums at home. As you had an abnormal EKG outpatient today, you were sent to the emergency department to rule out potential life threatening causes of this. We are able to rule out heart attack, heart failure, pulmonary embolism, pneumonia, pneumothorax, aortic dissection, pneumonia, hepatobiliary disease, pancreatitis, anemia, and metabolic dysfunction. It appears your pain is most likely due to esophageal reflux (heartburn). You were given medicine to help with this while here. At home: -AVOID alcohol, spicy foods, Motrin/Aleve medications, and eating past 8:00 at night. -You may take antacids such as Maalox or Tums for acute symptoms but realize that these medications will not prevent your symptoms. -Remain upright for at least 45 minutes following meals. -Follow-up with your primary care doctor or gastroenterology. -Return to ED if you develop fever, chills, increased pain, vomiting. Other things to do to prevent symptoms: -Lose weight (if you are overweight) -Raise the head of your bed by 6 to 8 inches (for example, by putting blocks of wood or rubber under 2 legs of the bed or a Styrofoam wedge under the mattress) -Avoid foods that make your symptoms worse (examples include coffee, chocolate, alcohol, peppermint, and fatty foods) -Cut down on the amount of alcohol you drink -Stop smoking, if you smoke -Eat a bunch of small meals each day, rather than 2 or 3 big meals -Avoid lying down for 3 hours after a meal Follow up outpatient with gastroenterology and your primary care. Please return to the emergency department for shortness of breath, new chest pain, or any concerning symptoms. Thank you for allowing me to take care of you today :) Prescriptions: No Action losartan 50 mg tablet 50 mg PO DAILY metoprolol succinate 50 mg tablet extended release 24 hr 50 mg PO BEDTIME aspirin [Aspir-81] 81 mg Tablet,Delayed Release (Dr/Ec) 81 mg PO DAILY omeprazole 20 mg capsule,delayed release(DR/EC) 20 mg PO DAILY@1700 vitamin B complex Tablet 1 tab PO DAILY PreserVision AREDS-2 250-90-40-1 mg Capsule 1 tab PO BID lidocaine-epinephrine 1 %-1:100,000 solution 30 ml Infiltration ONCE Qty: 30 0RF multivitamin Tablet 1 tab PO DAILY ascorbate calcium (vitamin C) 500 mg tablet 1,000 mg PO DAILY magnesium 250 mg tablet 250 mg PO DAILY Referrals: [facility] [place] [facility] [Provider Group, Gastroenterology] Clinical Impression: Esophageal reflux; Chest pain Ashwini Blanchard PA [Primary Care Provider, Hospitalist] Referral Note: ER follow up Clinical Impression: Esophageal reflux; Chest pain Print Language: Senegalese
[2025-07-21 16:11] VITALS: BP 133/59; PULSE 86; RESP 15; TEMP 36.9; O2SAT 96
[2025-07-21 16:16] LABS: MANUAL DIFF FLAG NO
[2025-07-21 16:26] LABS: Hematocrit 43.0 % (37.0-47.0); Hemoglobin 14.3 g/dl (12.0-16.0); Imm Gran Abs Auto 0.03 X10*3/uL (0.00-0.03); Imm Gran Pct Auto 0.3 % (0.0-0.4); Lymphocytes Absolute Auto 2.3 X10*3/uL (1.2-4.9); Mean Corpuscular HGB Conc 33.3 g/dl (31.0-35.0); Mean Corpuscular Hemoglobin 31.1 pg (27.0-33.0); Mean Corpuscular Volume 93.5 fL (80.0-98.0); NRBC Abs Auto 0.000 X10*3/uL (0.0-0.012); NRBC Pct Auto 0.0 /100WBC (0.0-0.2); Platelet Count 305 X10*3/uL (160-400); Red Blood Count 4.60 X10*6/uL (4.20-5.50); White Blood Count 9.2 X10*3/uL (4.8-10.8)
[2025-07-21 16:28] LABS: D Dimer High Sensitivity 193 NG/ML
[2025-07-21 16:33] LABS: Alanine Aminotransferase 20 U/L (0-31); Albumin Level 4.6 g/dL (3.5-5.0); Alkaline Phosphatase 96 U/L (39-117); Anion Gap 10 (12-20); Aspartate Amino Transferase 22 U/L (5-31); Blood Urea Nitrogen 21 mg/dL (9-16); Calcium 10.0 mg/dL (8.4-10.2); Carbon Dioxide 31 mmol/L (22-29); Chloride 107 mmol/L (96-108); Creatinine Clr Calc Pharmacy 58.3; Estimated Glomerular Filt Rate > 60; Lipase 19 U/L (8-78); Magnesium 2.2 mg/dL (1.6-2.6); Potassium 4.0 mmol/L (3.3-5.1); Sodium 144 mmol/L (135-145); Total Protein 7.0 g/dL (6.5-8.0)
[2025-07-21 16:43] LABS: Troponin-I High Sensitivity < 2.7 ng/L (<3.5-17.0)
[2025-07-21 16:48] LABS: NT Pro B Type Natriuretic Pept 257.8 pg/mL (<300)
[2025-07-21 17:36] VITALS: BP 125/65; PULSE 92
[2025-07-21] MEDS: Magnesium Hydrox/Alum Hydrox 30 ML ORAL.SUSP 15 ML PO (17:36)
[2025-07-21] MEDS: Metoprolol Succinate ER 50 MG TAB.ER.24H PO (17:36)
[2025-07-21] MEDS: Lidocaine HCl Viscous 2 % 15 ML SOLUTION MUCOUS MEM (17:37)
[2025-07-21 18:32] VITALS: BP 134/50; PULSE 96; RESP 12; TEMP 36.6; O2SAT 96
[2025-07-21 18:34] VITALS: BP 134/50; PULSE 96; RESP 12; TEMP 36.6; O2SAT 96
== END 2025-07-21 18:35 | disposition home or self-care (01) ==
PROVIDERS: Physician Assistant Medical; Emergency Provider Emergency Medicine; PCP Physician Assistant
DX: R07.9 Chest pain, unspecified (principal); K21.9 Gastro-esophageal reflux disease without esophagitis; I10 Essential (primary) hypertension; I35.0 Nonrheumatic aortic (valve) stenosis; R06.09 Other forms of dyspnea; Z79.899 Other long term (current) drug therapy
CPT/HCPCS: 36415; 71045; 80053; 83690; 83735; 83880; 84484; 85025; 85379; 93005; 99202; 99283; 99285

== ENCOUNTER → 2025-07-21 14:38 | Outpatient (BNV) | payer MEDICARE, SELFPAY | PROVIDERS: Emergency Provider Emergency Medicine; PCP Physician Assistant; Visit Provider Internal Medicine Cardiovascular Disease | DX: R94.31 Abnormal electrocardiogram [ECG] [EKG] (principal); R07.9 Chest pain, unspecified | CPT/HCPCS: 93010 ==

== ENCOUNTER → 2025-07-21 15:59 | Outpatient (BNV) | payer MEDICARE, SELFPAY | PROVIDERS: Emergency Provider Emergency Medicine; PCP Physician Assistant; Visit Provider Radiology Diagnostic Radiology | DX: R07.9 Chest pain, unspecified (principal) | CPT/HCPCS: 71045 ==